=== PATIENT | male | born 1950 | race African-American/Black ===

== ENCOUNTER 2023-07-11 10:45 | Inpatient (IN) | payer MEDICARE, MEDICAID ==
[2023-07-11] MEDS: Ondansetron 4 MG/2 ML SDV IVPUSH ONE (10:59)
[2023-07-11] MEDS: HYDROmorphone 2 MG/ML SDV IVPUSH ONE (10:59)
[2023-07-11 11:08] LABS: BLOOD UREA NITROGEN,BUN 11 mg/dL (7-18); BUN/CREATININE RATIO 8.5 (9-20); CALCIUM 9.2 mg/dL (8.6-10.2); CARBON DIOXIDE,CO2 31 mmol/L (21-32); CHLORIDE,CL 107 mmol/L (100-110); CREATININE 1.3 mg/dL (0.70-1.30); EST CRCL DRUG DOSING (CG) 48.77 mL/min; ESTIMATED GFR 58 mL/min (>60); GLUCOSE RANDOM 83 mg/dL (80-116); POTASSIUM,K 3.4 mmol/L (3.5-5.3); SODIUM,NA 145 mmol/L (135-145)
[2023-07-11 11:12] LABS: BASOPHILS PERCENT AUTO 0.3 % (0.3-3.8); EOSINOPHILS PERCENT AUTO 0.1 % (0.1-6.8); HEMATOCRIT 44.2 % (38.3-50.1); HEMOGLOBIN 14.9 g/dL (12.9-17.7); LYMPHOCYTES ABSOLUTE AUTO 1.1 x10-3/uL (0.5-4.5); MEAN CORPUSCULAR HGB CONC 33.6 g/dL (28.7-35.3); MEAN CORPUSCULAR VOLUME 100.3 fL (80.8-98.7); MEAN PLATELET VOLUME 7.6 fL (6.7-11.0); MONOCYTES ABSOLUTE AUTO 0.8 x10-3/uL (0.0-1.2); MONOCYTES PERCENT AUTO 11.4 % (5.5-15.2); NEUTROPHILS ABSOLUTE AUTO 5.4 x10-3/uL (1.7-6.9); NEUTROPHILS PERCENT AUTO 73.2 % (40.3-71.8); PLATELET COUNT,PLT 186 x10(3)uL (117-477); RED BLOOD CELL COUNT 4.41 x10(6)uL (3.90-5.90); RED CELL DISTRIBUTION WIDTH 12.7 % (12.4-15.0); WHITE BLOOD CELL COUNT,WBC 7.4 x10-3/uL (3.2-10.1)
[2023-07-11 11:14] LABS: A/G RATIO 0.8; ALANINE AMINOTRANSFERASE,ALT 14 U/L (12-36); ALBUMIN 3.1 g/dL (3.2-4.6); ALKALINE PHOSPHATASE 95 IU/L (56-112); ASPARTATE AMNIOTRANSFERASE,AST 11 IU/L (5-25); BILIRUBIN TOTAL 1.1 mg/dL (0.1-1.3); PROTEIN TOTAL,TP 6.9 g/dL (6.0-8.0)
[2023-07-11 11:19] LABS: MEAN CORPUSCULAR HEMOGLOBIN 33.7 pg (27.0-33.3)
[2023-07-11] MEDS: cefTRIAXone 2 GM Vial IVPUSH ONE (11:22)
[2023-07-11] MEDS: Iopamidol 755 Mg/ML 100 ML Bottle IV SCH (11:55)
[2023-07-11] MEDS: Lactated Ringers 1,000 ML IV SCH (13:30)
[2023-07-11] MEDS ORDERED: Ondansetron 4 MG/2 ML SDV IV PRN (13:47)
[2023-07-11] MEDS ORDERED: Clindamycin Phosphate 300 MG/2 ML SDV IV SCH (14:00)
[2023-07-11] MEDS: Enoxaparin 40 MG/0.4 ML Syringe SUBCUT SCH (15:31)
[2023-07-11] MEDS: VANCOmycin 1 GM/200 ML 1 GM in Premix Bag 1 BAG IV SCH (15:33)
[2023-07-11] MEDS ORDERED: Ergocalciferol (Vitamin D2) 1.25 MG Cap PO SCH (17:00)
[2023-07-11] MEDS: Ertapenem 1 GM in Sodium Chloride 0.9% 50 ML IV SCH (17:50)
[2023-07-11] MEDS: Potassium Chloride 20 MEQ Tab.ER PO STA (18:13)
[2023-07-11] MEDS: Thiamine 100 MG Tab PO SCH (18:13)
[2023-07-11] MEDS: Folic Acid 1 MG Tab PO SCH (18:13)
[2023-07-11] MEDS: SODIUM CHLORIDE 0.9% IV SCH (19:08)
[2023-07-11] MEDS: DAPTOMYCIN IV SCH (19:08)
[2023-07-11] MEDS ORDERED: LORazepam 2 MG/ML SDV IVPUSH PRN (19:46)
[2023-07-11] MEDS: Gabapentin 300 MG Cap PO SCH (20:02)
[2023-07-11] MEDS: atorvaSTATin 40 MG Tab PO SCH (20:02)
[2023-07-11] MEDS: Tamsulosin 0.4 MG Cap.ER PO SCH (20:02)
[2023-07-11] MEDS: HYDROmorphone 2 MG/ML SDV IVPUSH PRN (20:03)
[2023-07-11] MEDS ORDERED: Saccharomyces Boulardii (Probiotic) 250 MG Cap PO SCH (21:00)
[2023-07-12 06:47] LABS: BASOPHILS PERCENT AUTO 0.8 % (0.3-3.8); EOSINOPHILS ABSOLUTE AUTO 0.1 x10-3/uL (0.0-0.6); EOSINOPHILS PERCENT AUTO 1.7 % (0.1-6.8); HEMATOCRIT 39.1 % (38.3-50.1); HEMOGLOBIN 13.1 g/dL (12.9-17.7); LYMPHOCYTES ABSOLUTE AUTO 1.6 x10-3/uL (0.5-4.5); LYMPHOCYTES PERCENT AUTO 30.2 % (15.8-45.3); MEAN CORPUSCULAR HEMOGLOBIN 33.7 pg (27.0-33.3); MEAN CORPUSCULAR HGB CONC 33.5 g/dL (28.7-35.3); MEAN CORPUSCULAR VOLUME 100.5 fL (80.8-98.7); MEAN PLATELET VOLUME 7.5 fL (6.7-11.0); MONOCYTES ABSOLUTE AUTO 0.7 x10-3/uL (0.0-1.2); MONOCYTES PERCENT AUTO 12.5 % (5.5-15.2); NEUTROPHILS ABSOLUTE AUTO 2.9 x10-3/uL (1.7-6.9); NEUTROPHILS PERCENT AUTO 54.8 % (40.3-71.8); PLATELET COUNT,PLT 166 x10(3)uL (117-477); RED BLOOD CELL COUNT 3.89 x10(6)uL (3.90-5.90); RED CELL DISTRIBUTION WIDTH 12.8 % (12.4-15.0); WHITE BLOOD CELL COUNT,WBC 5.2 x10-3/uL (3.2-10.1)
[2023-07-12 06:54] LABS: BLOOD UREA NITROGEN,BUN 9 mg/dL (7-18); BUN/CREATININE RATIO 8.2 (9-20); CALCIUM 8.9 mg/dL (8.6-10.2); CARBON DIOXIDE,CO2 27 mmol/L (21-32); CHLORIDE,CL 108 mmol/L (100-110); CREATININE 1.1 mg/dL (0.70-1.30); EST CRCL DRUG DOSING (CG) 57.69 mL/min; ESTIMATED GFR 71 mL/min (>60); GLUCOSE RANDOM 89 mg/dL (80-116); MAGNESIUM 1.7 mg/dL (1.8-2.5); SODIUM,NA 142 mmol/L (135-145)
[2023-07-12] MEDS: Metoprolol Succinate 25 MG Tab.ER PO SCH (10:09)
[2023-07-12] MEDS: Furosemide 40 MG Tab PO SCH (10:09)
[2023-07-12] MEDS: Clopidogrel 75 MG Tab PO SCH (10:10)
[2023-07-12] MEDS: hydrALAZINE 50 MG Tab PO SCH (11:04)
[2023-07-12] MEDS: Sodium Chloride 0.9% 10 ML Syringe FLUSH PRN (12:33)
[2023-07-12] MEDS: Magnesium Oxide 400 MG Tab PO ONE ×2 (12:37→13:10)
[2023-07-12] MEDS: Ertapenem 1 GM in Sodium Chloride 0.9% 50 ML IV SCH (13:04)
[2023-07-12] MEDS ORDERED: Lidocaine 1% PF 2 ML SDV IV ONE (14:14)
[2023-07-12] MEDS ORDERED: fentaNYL 100 MCG/2 ML SDV IV ONE (14:14)
[2023-07-12] MEDS ORDERED: Lidocaine 2% 20 ML MDV INFILT ONE (14:14)
[2023-07-12] MEDS ORDERED: Lactated Ringers 1,000 ML IV ONE (14:14)
[2023-07-12] MEDS ORDERED: Propofol 200 MG/20 ML SDV IV ONE (14:14)
== END 2023-07-12 14:15 | disposition still patient (30) | DRG 581 ==
LOC: FB.ED 10:45 → FB.MS 13:51
PROVIDERS: ADMIT Family Medicine; ATTEND Internal Medicine
PROC: 0Y950ZZ Drainage of Right Inguinal Region, Open Approach (ICD-10-PCS; principal; 2023-07-11)
DX: L02.214 Cutaneous abscess of groin (principal); I10 Essential (primary) hypertension; E78.00 Pure hypercholesterolemia, unspecified; Z66 Do not resuscitate; F17.210 Nicotine dependence, cigarettes, uncomplicated; E87.6 Hypokalemia; F10.20 Alcohol dependence, uncomplicated; F12.10 Cannabis abuse, uncomplicated; F32.A Depression, unspecified; I70.0 Atherosclerosis of aorta; E83.42 Hypomagnesemia; Z79.899 Other long term (current) drug therapy; Z86.73 Personal history of transient ischemic attack (TIA), and cerebral infarction without residual deficits; Z95.828 Presence of other vascular implants and grafts; I48.91 Unspecified atrial fibrillation; Z88.0 Allergy status to penicillin
CPT/HCPCS: 74177; 80053; 83605; 85025; 86140; 87040; 87070; 87205; J0696; J1170; J2405; J7120; Q9967; 10060; 36415; 80048; 83735; 96374; 96375; 99222; 99238; 99285-25; A9270-GY; J0878; J1335; J1650; J2704; J3010; J3370; J3490

== ENCOUNTER 2023-10-28 07:37 | Emergency (ER) | payer OTHER, MEDICAID ==
[2023-10-28 08:16] LABS: BASOPHILS PERCENT AUTO 0.4 % (0.3-3.8); EOSINOPHILS ABSOLUTE AUTO 0.1 x10-3/uL (0.0-0.6); EOSINOPHILS PERCENT AUTO 1.3 % (0.1-6.8); HEMATOCRIT 48.8 % (38.3-50.1); HEMOGLOBIN 16.6 g/dL (12.9-17.7); LYMPHOCYTES ABSOLUTE AUTO 1.3 x10-3/uL (0.5-4.5); LYMPHOCYTES PERCENT AUTO 22.7 % (15.8-45.3); MEAN CORPUSCULAR HEMOGLOBIN 33.6 pg (27.0-33.3); MEAN CORPUSCULAR HGB CONC 34.1 g/dL (28.7-35.3); MEAN CORPUSCULAR VOLUME 98.4 fL (80.8-98.7); MEAN PLATELET VOLUME 7.1 fL (6.7-11.0); MONOCYTES ABSOLUTE AUTO 0.5 x10-3/uL (0.0-1.2); MONOCYTES PERCENT AUTO 9.6 % (5.5-15.2); NEUTROPHILS ABSOLUTE AUTO 3.7 x10-3/uL (1.7-6.9); PLATELET COUNT,PLT 225 x10(3)uL (117-477); RED BLOOD CELL COUNT 4.96 x10(6)uL (3.90-5.90); RED CELL DISTRIBUTION WIDTH 12.5 % (12.4-15.0); WHITE BLOOD CELL COUNT,WBC 5.7 x10-3/uL (3.2-10.1)
[2023-10-28] MEDS: Sodium Chloride 0.9% 1,000 ML IV ONE (08:25)
[2023-10-28] MEDS: Ondansetron 4 MG/2 ML SDV IVPUSH ONE ×2 (08:26→13:37)
[2023-10-28] MEDS: Morphine 2 MG/ML SYRINGE IVPUSH ONE (08:31)
[2023-10-28 08:41] LABS: BLOOD UREA NITROGEN,BUN 13 mg/dL (7-18); BUN/CREATININE RATIO 10.8 (9-20); CALCIUM 8.9 mg/dL (8.6-10.2); CARBON DIOXIDE,CO2 27 mmol/L (21-32); CHLORIDE,CL 100 mmol/L (100-110); CREATININE 1.2 mg/dL (0.70-1.30); EST CRCL DRUG DOSING (CG) 49.98 mL/min; ESTIMATED GFR 64 mL/min (>60); GLUCOSE RANDOM 91 mg/dL (80-116); POTASSIUM,K 4.2 mmol/L (3.5-5.3); SODIUM,NA 137 mmol/L (135-145)
[2023-10-28 08:47] LABS: A/G RATIO 0.9; ALANINE AMINOTRANSFERASE,ALT 15 U/L (12-36); ALBUMIN 3.3 g/dL (3.2-4.6); ALKALINE PHOSPHATASE 89 IU/L (56-112); ASPARTATE AMNIOTRANSFERASE,AST 16 IU/L (5-25); BILIRUBIN TOTAL 1.3 mg/dL (0.1-1.3); PROTEIN TOTAL,TP 7.2 g/dL (6.0-8.0)
[2023-10-28] MEDS: Iopamidol 755 Mg/ML 100 ML Bottle IV SCH (09:17)
[2023-10-28] MEDS: Sodium Chloride 0.9% 1,000 ML IV SCH (09:46)
[2023-10-28 09:55] LABS: BILIRUBIN,URINE NEGATIVE (NEGATIVE); GLUCOSE,URINE NORMAL (NORMAL); KETONES,URINE 50 mg/dL (NEGATIVE); LEUKOCYTE ESTERASE,URINE NEGATIVE (NEGATIVE); NITRITE,URINE NEGATIVE (NEGATIVE); OCCULT BLOOD,URINE NEGATIVE (NEGATIVE); PROTEIN,URINE NEGATIVE (NEGATIVE); UROBILINOGEN,URINE NORMAL (NEGATIVE)
[2023-10-28 09:58] LABS: APPEARANCE,URINE CLEAR (CLEAR); COLOR,URINE YELLOW (YELLOW)
[2023-10-28] MEDS: hydrALAZINE 20 MG/ML SDV IVPUSH ONE (10:59)
[2023-10-28] MEDS: Nitroglycerin 0.4 MG Tab.SL SL ONE (11:56)
== END 2023-10-28 15:17 | disposition home or self-care (01) ==
LOC: FB.ED 07:37
DX: R07.9 Chest pain, unspecified (principal); I10 Essential (primary) hypertension; E78.00 Pure hypercholesterolemia, unspecified; Z88.0 Allergy status to penicillin; Z79.82 Long term (current) use of aspirin; Z79.899 Other long term (current) drug therapy
CPT/HCPCS: 36415; 71046; 72192; 74177; 80053; 81003; 83735; 84484; 85025; 93005; 96361; 96374; 96375; 96376; 99285; J0360; J2270; J2405; J7030; Q9967

== ENCOUNTER 2023-11-30 18:57 | Emergency (ER) | payer MEDICAID ==
[2023-11-30] MEDS ORDERED: Sodium Chloride 0.9% 10 ML Syringe FLUSH PRN (19:11)
[2023-11-30] MEDS: Ondansetron 4 MG/2 ML SDV IVPUSH ONE (19:43)
[2023-11-30] MEDS: Sodium Chloride 0.9% 1,000 ML IV SCH (19:45)
[2023-11-30 19:56] LABS: BASOPHILS PERCENT AUTO 0.3 % (0.3-3.8); EOSINOPHILS PERCENT AUTO 0.3 % (0.1-6.8); HEMOGLOBIN 17.4 g/dL (12.9-17.7); LYMPHOCYTES ABSOLUTE AUTO 0.9 x10-3/uL (0.5-4.5); LYMPHOCYTES PERCENT AUTO 13.5 % (15.8-45.3); MEAN CORPUSCULAR HEMOGLOBIN 33.4 pg (27.0-33.3); MEAN CORPUSCULAR HGB CONC 33.5 g/dL (28.7-35.3); MEAN CORPUSCULAR VOLUME 99.8 fL (80.8-98.7); MEAN PLATELET VOLUME 7.6 fL (6.7-11.0); MONOCYTES ABSOLUTE AUTO 0.5 x10-3/uL (0.0-1.2); MONOCYTES PERCENT AUTO 7.3 % (5.5-15.2); NEUTROPHILS ABSOLUTE AUTO 5.1 x10-3/uL (1.7-6.9); NEUTROPHILS PERCENT AUTO 78.6 % (40.3-71.8); PLATELET COUNT,PLT 198 x10(3)uL (117-477); RED BLOOD CELL COUNT 5.21 x10(6)uL (3.90-5.90); RED CELL DISTRIBUTION WIDTH 13.3 % (12.4-15.0); WHITE BLOOD CELL COUNT,WBC 6.5 x10-3/uL (3.2-10.1)
[2023-11-30 20:10] LABS: LACTIC ACID 1.8 mmol/L (0.4-2.0)
[2023-11-30 20:22] LABS: C-REACTIVE PROTEIN < 0.50 mg/dL (<0.50)
[2023-11-30 20:32] LABS: BLOOD UREA NITROGEN,BUN 14 mg/dL (7-18); BUN/CREATININE RATIO 15.6 (9-20); CALCIUM 8.2 mg/dL (8.6-10.2); CARBON DIOXIDE,CO2 24 mmol/L (21-32); CHLORIDE,CL 99 mmol/L (100-110); CREATININE 0.9 mg/dL (0.70-1.30); ESTIMATED GFR 91 mL/min (>60); GLUCOSE RANDOM 77 mg/dL (80-116); POTASSIUM,K 3.7 mmol/L (3.5-5.3); SODIUM,NA 137 mmol/L (135-145)
[2023-11-30 20:38] LABS: ALANINE AMINOTRANSFERASE,ALT 15 U/L (12-36); ALBUMIN 2.9 g/dL (3.2-4.6); ALKALINE PHOSPHATASE 78 IU/L (56-112); ASPARTATE AMNIOTRANSFERASE,AST 19 IU/L (5-25); BILIRUBIN TOTAL 1.4 mg/dL (0.1-1.3); PROTEIN TOTAL,TP 5.9 g/dL (6.0-8.0)
[2023-11-30 21:03] LABS: BILIRUBIN,URINE NEGATIVE (NEGATIVE); GLUCOSE,URINE NORMAL (NORMAL); KETONES,URINE 150 mg/dL (NEGATIVE); LEUKOCYTE ESTERASE,URINE NEGATIVE (NEGATIVE); NITRITE,URINE NEGATIVE (NEGATIVE); OCCULT BLOOD,URINE NEGATIVE (NEGATIVE); PROTEIN,URINE 30 mg/dL (NEGATIVE); UROBILINOGEN,URINE NORMAL (NEGATIVE)
[2023-11-30 21:10] LABS: APPEARANCE,URINE CLEAR (CLEAR); BACTERIA,URINE OCCASIONAL (NS); COLOR,URINE YELLOW (YELLOW); MUCUS,URINE FEW (NS); RBC,URINE 0-5 (0-5); SQUAMOUS EPITHELIAL CELLS,UR OCCASIONAL (NS,R,O); WBC,URINE 0-5 (0-5)
[2023-11-30 21:11] LABS: AMPHETAMINES SCREEN, URINE NEGATIVE (NEGATIVE); BARBITURATE SCREEN,URINE NEGATIVE (NEGATIVE); BENZODIAZEPINES SCREEN,URINE NEGATIVE (NEGATIVE); METHADONE SCREEN, URINE NEGATIVE (NEGATIVE); METHAMPHETAMINE SCREEN, URINE NEGATIVE (NEGATIVE); THC SCREEN,URINE POSITIVE (NEGATIVE)
[2023-11-30 21:12] LABS: BUPRENORPHINE SCREEN,URINE NEGATIVE (NEGATIVE); OXYCODONE SCREEN,URINE NEGATIVE (NEGATIVE)
[2023-11-30] MEDS: Iopamidol 755 Mg/ML 100 ML Bottle IV SCH (21:35)
[2023-11-30] MEDS: Metoclopramide 10 MG/2 ML SDV IVPUSH ONE (22:04)
[2023-11-30] MEDS: Sodium Chloride 0.9% 1,000 ML IV ONE (22:06)
[2023-11-30] MEDS: Pantoprazole 40 MG Vial IVPUSH ONE (22:06)
== END 2023-11-30 23:02 | disposition home or self-care (01) ==
LOC: FB.ED 18:57
DX: R07.9 Chest pain, unspecified (principal); R11.2 Nausea with vomiting, unspecified; I10 Essential (primary) hypertension; Z95.5 Presence of coronary angioplasty implant and graft; Z79.899 Other long term (current) drug therapy; Z79.82 Long term (current) use of aspirin; Z88.0 Allergy status to penicillin
CPT/HCPCS: 36415; 71045; 71275; 80053; 80307; 81001; 83605; 84484; 85025; 85379; 86140; 87040; 93005; 96361; 96374; 96375; 99285; J2405; J2470; J2765; J7030; Q9967; 99284

== ENCOUNTER 2023-12-10 12:07 | Emergency (ER) | payer MEDICAID, MEDICARE, OTHER ==
[2023-12-10] MEDS ORDERED: Sodium Chloride 0.9% 10 ML Syringe FLUSH PRN (12:27)
[2023-12-10] MEDS: Sodium Chloride 0.9% 1,000 ML IV SCH (12:41)
[2023-12-10] MEDS: Ondansetron 4 MG/2 ML SDV IVPUSH ONE (12:41)
[2023-12-10] MEDS: Aspirin 81 MG Tab.Chew PO ONE (12:54)
[2023-12-10] MEDS: Nitroglycerin 0.4 MG Tab.SL SL ONE (12:56)
[2023-12-10 13:02] LABS: BLOOD UREA NITROGEN,BUN 12 mg/dL (7-18); BUN/CREATININE RATIO 10.9 (9-20); CALCIUM 9.7 mg/dL (8.6-10.2); CARBON DIOXIDE,CO2 30 mmol/L (21-32); CHLORIDE,CL 101 mmol/L (100-110); CREATININE 1.1 mg/dL (0.70-1.30); ESTIMATED GFR 71 mL/min (>60); GLUCOSE RANDOM 118 mg/dL (80-116); POTASSIUM,K 4.8 mmol/L (3.5-5.3); SODIUM,NA 141 mmol/L (135-145)
[2023-12-10 13:03] LABS: BASOPHILS PERCENT AUTO 0.1 % (0.3-3.8); EOSINOPHILS ABSOLUTE AUTO 0.1 x10-3/uL (0.0-0.6); EOSINOPHILS PERCENT AUTO 0.6 % (0.1-6.8); HEMATOCRIT 49.4 % (38.3-50.1); HEMOGLOBIN 16.7 g/dL (12.9-17.7); LYMPHOCYTES ABSOLUTE AUTO 0.7 x10-3/uL (0.5-4.5); LYMPHOCYTES PERCENT AUTO 7.2 % (15.8-45.3); MEAN CORPUSCULAR HEMOGLOBIN 33.9 pg (27.0-33.3); MEAN CORPUSCULAR HGB CONC 33.9 g/dL (28.7-35.3); MEAN CORPUSCULAR VOLUME 100.1 fL (80.8-98.7); MEAN PLATELET VOLUME 7.7 fL (6.7-11.0); MONOCYTES ABSOLUTE AUTO 0.8 x10-3/uL (0.0-1.2); MONOCYTES PERCENT AUTO 7.9 % (5.5-15.2); NEUTROPHILS ABSOLUTE AUTO 8.6 x10-3/uL (1.7-6.9); NEUTROPHILS PERCENT AUTO 84.2 % (40.3-71.8); PLATELET COUNT,PLT 203 x10(3)uL (117-477); RED BLOOD CELL COUNT 4.94 x10(6)uL (3.90-5.90); RED CELL DISTRIBUTION WIDTH 13.2 % (12.4-15.0); WHITE BLOOD CELL COUNT,WBC 10.2 x10-3/uL (3.2-10.1)
[2023-12-10 13:07] LABS: INR 1.02 (1.00-1.24); PROTHROMBIN TIME 10.6 sec (9.0-11.1); PTT,PARTIAL THROMBOPLSTIN TIME 23.6 SECONDS (24.4-33.2)
[2023-12-10 13:08] LABS: ALANINE AMINOTRANSFERASE,ALT 15 U/L (12-36); ALBUMIN 3.6 g/dL (3.2-4.6); ALKALINE PHOSPHATASE 88 IU/L (56-112); ASPARTATE AMNIOTRANSFERASE,AST 14 IU/L (5-25); BILIRUBIN TOTAL 1.3 mg/dL (0.1-1.3); PROTEIN TOTAL,TP 7.3 g/dL (6.0-8.0)
[2023-12-10 13:17] LABS: TROPONIN I 33.6 pg/mL (4.0-60.3)
[2023-12-10] MEDS: Ketorolac 30 MG/ML SDV IVPUSH ONE (13:19)
[2023-12-10] MEDS: Prochlorperazine 10 MG/2 ML SDV IVPUSH ONE (13:20)
[2023-12-10] MEDS: amLODIPine 10 MG Tab PO STA (13:20)
[2023-12-10] MEDS: Labetalol 20 MG/4 ML Syringe IVPUSH ONE (13:52)
== END 2023-12-10 14:25 | disposition home or self-care (01) ==
LOC: FB.ED 12:07
DX: K52.9 Noninfective gastroenteritis and colitis, unspecified (principal); R07.81 Pleurodynia; E11.9 Type 2 diabetes mellitus without complications; I10 Essential (primary) hypertension; E78.00 Pure hypercholesterolemia, unspecified; F17.210 Nicotine dependence, cigarettes, uncomplicated; Z79.82 Long term (current) use of aspirin; Z79.02 Long term (current) use of antithrombotics/antiplatelets; Z79.899 Other long term (current) drug therapy; Z88.0 Allergy status to penicillin
CPT/HCPCS: 36415; 71045; 80053; 83880; 84484; 85025; 85610; 85730; 93005; 96361; 96374; 96375; 99285-25; A9270-GY; J0780; J1885; J2405; J7030

== ENCOUNTER 2024-03-25 10:41 | Emergency (ER) | payer MEDICARE, MEDICAID ==
[2024-03-25 11:11] LABS: BASOPHILS PERCENT AUTO 0.2 % (0.3-3.8); EOSINOPHILS PERCENT AUTO 0.5 % (0.1-6.8); HEMATOCRIT 45.4 % (38.3-50.1); LYMPHOCYTES ABSOLUTE AUTO 0.3 x10-3/uL (0.5-4.5); LYMPHOCYTES PERCENT AUTO 5.5 % (15.8-45.3); MEAN CORPUSCULAR HEMOGLOBIN 32.8 pg (27.0-33.3); MEAN CORPUSCULAR HGB CONC 33.1 g/dL (28.7-35.3); MEAN CORPUSCULAR VOLUME 99.1 fL (80.8-98.7); MEAN PLATELET VOLUME 7.4 fL (6.7-11.0); MONOCYTES ABSOLUTE AUTO 0.4 x10-3/uL (0.0-1.2); MONOCYTES PERCENT AUTO 7.8 % (5.5-15.2); NEUTROPHILS ABSOLUTE AUTO 4.5 x10-3/uL (1.7-6.9); NEUTROPHILS PERCENT AUTO 86.1 % (40.3-71.8); PLATELET COUNT,PLT 155 x10(3)uL (117-477); RED BLOOD CELL COUNT 4.58 x10(6)uL (3.90-5.90); RED CELL DISTRIBUTION WIDTH 12.7 % (12.4-15.0); WHITE BLOOD CELL COUNT,WBC 5.2 x10-3/uL (3.2-10.1)
[2024-03-25 11:15] LABS: BLOOD UREA NITROGEN,BUN 12 mg/dL (7-18); CALCIUM 8.9 mg/dL (8.6-10.2); CARBON DIOXIDE,CO2 29 mmol/L (21-32); CHLORIDE,CL 100 mmol/L (100-110); CREATININE 1.2 mg/dL (0.70-1.30); ESTIMATED GFR 64 mL/min (>60); GLUCOSE RANDOM 112 mg/dL (80-116); POTASSIUM,K 3.6 mmol/L (3.5-5.3); SODIUM,NA 138 mmol/L (135-145)
[2024-03-25 11:23] LABS: ALANINE AMINOTRANSFERASE,ALT 24 U/L (12-36); ALBUMIN 3.4 g/dL (3.2-4.6); ALKALINE PHOSPHATASE 88 IU/L (56-112); ASPARTATE AMNIOTRANSFERASE,AST 25 IU/L (5-25); BILIRUBIN TOTAL 1.1 mg/dL (0.1-1.3); PROTEIN TOTAL,TP 6.8 g/dL (6.0-8.0)
[2024-03-25 11:32] LABS: LACTIC ACID 1.5 mmol/L (0.4-2.0)
[2024-03-25] MEDS: Acetaminophen 500 MG Tab PO ONE (13:34)
== END 2024-03-25 13:59 | disposition home or self-care (01) ==
LOC: FB.ED 10:41
DX: S06.0X0A Concussion without loss of consciousness, initial encounter (principal); J10.1 Influenza due to other identified influenza virus with other respiratory manifestations; I10 Essential (primary) hypertension; E78.00 Pure hypercholesterolemia, unspecified; F17.290 Nicotine dependence, other tobacco product, uncomplicated; Z95.5 Presence of coronary angioplasty implant and graft; Z79.899 Other long term (current) drug therapy; Z79.82 Long term (current) use of aspirin; Z88.0 Allergy status to penicillin; W00.0XXA Fall on same level due to ice and snow, initial encounter; W22.8XXA Striking against or struck by other objects, initial encounter
CPT/HCPCS: 36415; 70450; 72125; 80053; 83605; 85025; 86140; 87428-QW; 99283; 99285; A9270-GY

== ENCOUNTER 2024-05-23 11:17 | Emergency (ER) | payer MEDICARE, MEDICAID ==
[2024-05-23] MEDS: Ketorolac 30 MG/ML SDV IM ONE (11:41)
== END 2024-05-23 13:59 | disposition home or self-care (01) ==
LOC: FB.ED 11:17
DX: S39.012A Strain of muscle, fascia and tendon of lower back, initial encounter (principal); M48.061 Spinal stenosis, lumbar region without neurogenic claudication; I10 Essential (primary) hypertension; E78.00 Pure hypercholesterolemia, unspecified; F17.290 Nicotine dependence, other tobacco product, uncomplicated; Z95.5 Presence of coronary angioplasty implant and graft; Z79.82 Long term (current) use of aspirin; Z79.899 Other long term (current) drug therapy; Z88.0 Allergy status to penicillin; W18.30XA Fall on same level, unspecified, initial encounter; Y92.009 Unspecified place in unspecified non-institutional (private) residence as the place of occurrence of the external cause
CPT/HCPCS: 70450; 72131; 96372; 99283; J1885

== ENCOUNTER 2024-06-08 09:42 | Emergency (ER) | payer MEDICARE, MEDICAID ==
[2024-06-08] MEDS ORDERED: Sodium Chloride 0.9% 10 ML Syringe FLUSH PRN (10:04)
[2024-06-08] MEDS ORDERED: Naloxone 0.4 MG/ML SDV IVPUSH PRN (10:07)
[2024-06-08] MEDS: Ondansetron 4 MG/2 ML SDV IVPUSH ONE ×2 (10:12→11:40)
[2024-06-08] MEDS: Sodium Chloride 0.9% 1,000 ML IV SCH (10:12)
[2024-06-08 10:14] LABS: BASOPHILS PERCENT AUTO 0.3 % (0.3-3.8); EOSINOPHILS PERCENT AUTO 0.2 % (0.1-6.8); HEMATOCRIT 53.1 % (38.3-50.1); LYMPHOCYTES ABSOLUTE AUTO 1.2 x10-3/uL (0.5-4.5); LYMPHOCYTES PERCENT AUTO 26.9 % (15.8-45.3); MEAN CORPUSCULAR HEMOGLOBIN 33.3 pg (27.0-33.3); MEAN CORPUSCULAR HGB CONC 33.9 g/dL (28.7-35.3); MEAN CORPUSCULAR VOLUME 98.2 fL (80.8-98.7); MEAN PLATELET VOLUME 7.4 fL (6.7-11.0); MONOCYTES ABSOLUTE AUTO 0.5 x10-3/uL (0.0-1.2); MONOCYTES PERCENT AUTO 10.2 % (5.5-15.2); NEUTROPHILS ABSOLUTE AUTO 2.9 x10-3/uL (1.7-6.9); NEUTROPHILS PERCENT AUTO 62.4 % (40.3-71.8); PLATELET COUNT,PLT 246 x10(3)uL (117-477); RED CELL DISTRIBUTION WIDTH 12.6 % (12.4-15.0); WHITE BLOOD CELL COUNT,WBC 4.6 x10-3/uL (3.2-10.1)
[2024-06-08] MEDS: fentaNYL 100 MCG/2 ML SDV IVPUSH STA (10:14)
[2024-06-08 10:22] LABS: BLOOD UREA NITROGEN,BUN 18 mg/dL (7-18); BUN/CREATININE RATIO 13.8 (9-20); CALCIUM 9.9 mg/dL (8.6-10.2); CARBON DIOXIDE,CO2 32 mmol/L (21-32); CHLORIDE,CL 95 mmol/L (100-110); CREATININE 1.3 mg/dL (0.70-1.30); EST CRCL DRUG DOSING (CG) 44.28 mL/min; ESTIMATED GFR 58 mL/min (>60); GLUCOSE RANDOM 129 mg/dL (80-116); POTASSIUM,K 4.3 mmol/L (3.5-5.3); SODIUM,NA 134 mmol/L (135-145)
[2024-06-08 10:27] LABS: A/G RATIO 0.9; ALANINE AMINOTRANSFERASE,ALT 20 U/L (12-36); ALBUMIN 3.8 g/dL (3.2-4.6); ALKALINE PHOSPHATASE 89 IU/L (56-112); ASPARTATE AMNIOTRANSFERASE,AST 34 IU/L (5-25); BILIRUBIN TOTAL 1.4 mg/dL (0.1-1.3); PROTEIN TOTAL,TP 8.2 g/dL (6.0-8.0)
[2024-06-08 10:33] LABS: TROPONIN I 23.6 pg/mL (4.0-60.3)
[2024-06-08] MEDS: Iopamidol 755 Mg/ML 100 ML Bottle IV SCH (10:43)
[2024-06-08 11:06] LABS: BILIRUBIN,URINE NEGATIVE (NEGATIVE); GLUCOSE,URINE NORMAL (NORMAL); KETONES,URINE 15 mg/dL (NEGATIVE); LEUKOCYTE ESTERASE,URINE NEGATIVE (NEGATIVE); NITRITE,URINE NEGATIVE (NEGATIVE); OCCULT BLOOD,URINE NEGATIVE (NEGATIVE); PROTEIN,URINE NEGATIVE (NEGATIVE); UROBILINOGEN,URINE NORMAL (NEGATIVE)
[2024-06-08 11:07] LABS: APPEARANCE,URINE CLEAR (CLEAR); COLOR,URINE YELLOW (YELLOW)
== END 2024-06-08 11:55 | disposition home or self-care (01) ==
LOC: FB.ED 09:42
DX: K59.00 Constipation, unspecified (principal); I10 Essential (primary) hypertension; E78.00 Pure hypercholesterolemia, unspecified; E11.9 Type 2 diabetes mellitus without complications; F17.210 Nicotine dependence, cigarettes, uncomplicated; Z88.0 Allergy status to penicillin; Z79.82 Long term (current) use of aspirin; Z79.899 Other long term (current) drug therapy; Z79.02 Long term (current) use of antithrombotics/antiplatelets; Z95.5 Presence of coronary angioplasty implant and graft
CPT/HCPCS: 36415; 71045; 74177; 80053; 81003; 83690; 83880; 84484; 85025; 93005; 93010; 96361; 96374; 96375; 96376; 99284; 99285-25; J2405; J3010; J7030; Q9967

== ENCOUNTER 2024-06-29 09:46 | Emergency (ER) | payer MEDICARE, MEDICAID ==
[2024-06-29] MEDS: Ondansetron 4 MG Tab.DIS PO ONE (10:24)
[2024-06-29 10:29] LABS: BASOPHILS PERCENT AUTO 0.7 % (0.3-3.8); EOSINOPHILS PERCENT AUTO 0.8 % (0.1-6.8); HEMATOCRIT 44.1 % (38.3-50.1); HEMOGLOBIN 14.7 g/dL (12.9-17.7); LYMPHOCYTES ABSOLUTE AUTO 1.5 x10-3/uL (0.5-4.5); LYMPHOCYTES PERCENT AUTO 31.4 % (15.8-45.3); MEAN CORPUSCULAR HGB CONC 33.2 g/dL (28.7-35.3); MEAN CORPUSCULAR VOLUME 99.3 fL (80.8-98.7); MEAN PLATELET VOLUME 6.9 fL (6.7-11.0); MONOCYTES ABSOLUTE AUTO 0.5 x10-3/uL (0.0-1.2); MONOCYTES PERCENT AUTO 10.6 % (5.5-15.2); NEUTROPHILS ABSOLUTE AUTO 2.8 x10-3/uL (1.7-6.9); NEUTROPHILS PERCENT AUTO 56.5 % (40.3-71.8); PLATELET COUNT,PLT 184 x10(3)uL (117-477); RED BLOOD CELL COUNT 4.44 x10(6)uL (3.90-5.90); RED CELL DISTRIBUTION WIDTH 12.6 % (12.4-15.0); WHITE BLOOD CELL COUNT,WBC 4.9 x10-3/uL (3.2-10.1)
[2024-06-29 10:43] LABS: BLOOD UREA NITROGEN,BUN 11 mg/dL (7-18); CALCIUM 8.9 mg/dL (8.6-10.2); CARBON DIOXIDE,CO2 29 mmol/L (21-32); CHLORIDE,CL 106 mmol/L (100-110); CREATININE 1.1 mg/dL (0.70-1.30); ESTIMATED GFR 71 mL/min (>60); GLUCOSE RANDOM 96 mg/dL (80-116); POTASSIUM,K 3.9 mmol/L (3.5-5.3); SODIUM,NA 142 mmol/L (135-145)
[2024-06-29 10:44] LABS: TROPONIN I 24.3 pg/mL (4.0-60.3)
[2024-06-29 10:49] LABS: A/G RATIO 0.9; ALANINE AMINOTRANSFERASE,ALT 15 U/L (12-36); ALKALINE PHOSPHATASE 73 IU/L (56-112); ASPARTATE AMNIOTRANSFERASE,AST 20 IU/L (5-25); BILIRUBIN TOTAL 0.9 mg/dL (0.1-1.3); PROTEIN TOTAL,TP 6.2 g/dL (6.0-8.0)
== END 2024-06-29 11:13 | disposition home or self-care (01) ==
LOC: FB.ED 09:46
DX: B34.9 Viral infection, unspecified (principal); E78.00 Pure hypercholesterolemia, unspecified; E11.9 Type 2 diabetes mellitus without complications; Z88.0 Allergy status to penicillin; Z79.82 Long term (current) use of aspirin; Z79.899 Other long term (current) drug therapy
CPT/HCPCS: 36415; 80053; 83690; 84484; 85025; 93005; 93010; 99283; 99284; Q0162

== ENCOUNTER 2024-08-03 09:21 | Emergency (ER) | payer MEDICARE, MEDICAID ==
[2024-08-03] MEDS: Ondansetron 4 MG/2 ML SDV IVPUSH ONE (09:58)
[2024-08-03] MEDS ORDERED: Sodium Chloride 0.9% 10 ML Syringe FLUSH PRN (09:58)
[2024-08-03 10:13] LABS: BLOOD UREA NITROGEN,BUN 22 mg/dL (7-18); BUN/CREATININE RATIO 14.7 (9-20); CALCIUM 9.9 mg/dL (8.6-10.2); CARBON DIOXIDE,CO2 31 mmol/L (21-32); CHLORIDE,CL 97 mmol/L (100-110); CREATININE 1.5 mg/dL (0.70-1.30); EST CRCL DRUG DOSING (CG) 38.03 mL/min; ESTIMATED GFR 49 mL/min (>60); GLUCOSE RANDOM 110 mg/dL (80-116); POTASSIUM,K 4.2 mmol/L (3.5-5.3); SODIUM,NA 137 mmol/L (135-145)
[2024-08-03 10:14] LABS: BASOPHILS PERCENT AUTO 0.3 % (0.3-3.8); EOSINOPHILS PERCENT AUTO 0.4 % (0.1-6.8); HEMATOCRIT 52.6 % (38.3-50.1); HEMOGLOBIN 17.9 g/dL (12.9-17.7); LYMPHOCYTES ABSOLUTE AUTO 1.1 x10-3/uL (0.5-4.5); LYMPHOCYTES PERCENT AUTO 18.2 % (15.8-45.3); MEAN CORPUSCULAR HEMOGLOBIN 33.4 pg (27.0-33.3); MEAN CORPUSCULAR HGB CONC 34.1 g/dL (28.7-35.3); MEAN CORPUSCULAR VOLUME 97.9 fL (80.8-98.7); MEAN PLATELET VOLUME 7.3 fL (6.7-11.0); MONOCYTES ABSOLUTE AUTO 0.6 x10-3/uL (0.0-1.2); MONOCYTES PERCENT AUTO 9.4 % (5.5-15.2); NEUTROPHILS ABSOLUTE AUTO 4.4 x10-3/uL (1.7-6.9); NEUTROPHILS PERCENT AUTO 71.7 % (40.3-71.8); PLATELET COUNT,PLT 262 x10(3)uL (117-477); RED BLOOD CELL COUNT 5.37 x10(6)uL (3.90-5.90); RED CELL DISTRIBUTION WIDTH 12.6 % (12.4-15.0); WHITE BLOOD CELL COUNT,WBC 6.1 x10-3/uL (3.2-10.1)
[2024-08-03 10:19] LABS: ALANINE AMINOTRANSFERASE,ALT 19 U/L (12-36); ALKALINE PHOSPHATASE 95 IU/L (56-112); ASPARTATE AMNIOTRANSFERASE,AST 16 IU/L (5-25); BILIRUBIN TOTAL 1.5 mg/dL (0.1-1.3); PROTEIN TOTAL,TP 8.1 g/dL (6.0-8.0)
[2024-08-03] MEDS: Pantoprazole 40 MG Vial IVPUSH ONE (10:19)
[2024-08-03] MEDS: Sodium Chloride 0.9% 1,000 ML IV ONE ×2 (10:19→11:22)
[2024-08-03 10:22] LABS: TROPONIN I 26.4 pg/mL (4.0-60.3)
[2024-08-03 10:36] LABS: C-REACTIVE PROTEIN <0.50 mg/dL (<0.50); ETHANOL BLOOD MEDICAL < 0.03 % (<0.03)
[2024-08-03] MEDS: Aspirin 81 MG Tab.Chew PO ONE (10:46)
[2024-08-03] MEDS: LORazepam 2 MG/ML SDV IVPUSH ONE (11:23)
== END 2024-08-03 13:20 | disposition home or self-care (01) ==
LOC: FB.ED 09:21
DX: R10.84 Generalized abdominal pain (principal); E86.0 Dehydration; R11.2 Nausea with vomiting, unspecified; F10.10 Alcohol abuse, uncomplicated; I10 Essential (primary) hypertension; E78.00 Pure hypercholesterolemia, unspecified; F17.290 Nicotine dependence, other tobacco product, uncomplicated; E11.9 Type 2 diabetes mellitus without complications; Z79.82 Long term (current) use of aspirin; Z79.02 Long term (current) use of antithrombotics/antiplatelets; Z79.899 Other long term (current) drug therapy; Z88.0 Allergy status to penicillin
CPT/HCPCS: 36415; 80053; 80307; 83605; 83690; 83735; 84484; 85025; 86140; 93005; 96361; 96374; 96375; 99285; A9270; J2060; J2405; J2470; J7030

== ENCOUNTER 2024-09-22 18:06 | Emergency (ER) | payer MEDICARE, MEDICAID ==
[2024-09-22] MEDS: hydrALAZINE 20 MG/ML SDV IVPUSH ONE (18:20)
[2024-09-22 18:30] LABS: BASOPHILS ABSOLUTE AUTO 0.0 x10-3/uL (0.0-0.3); BASOPHILS PERCENT AUTO 0.6 % (0.3-3.8); EOSINOPHILS ABSOLUTE AUTO 0.1 x10-3/uL (0.0-0.6); EOSINOPHILS PERCENT AUTO 1.6 % (0.1-6.8); LYMPHOCYTES ABSOLUTE AUTO 1.1 x10-3/uL (0.5-4.5); LYMPHOCYTES PERCENT AUTO 22.3 % (15.8-45.3); MEAN PLATELET VOLUME 7.1 fL (6.7-11.0); MONOCYTES ABSOLUTE AUTO 0.5 x10-3/uL (0.0-1.2); MONOCYTES PERCENT AUTO 10.4 % (5.5-15.2); NEUTROPHILS ABSOLUTE AUTO 3.3 x10-3/uL (1.7-6.9); NEUTROPHILS PERCENT AUTO 65.1 % (40.3-71.8); PLATELET COUNT,PLT 199 x10(3)uL (117-477); RED BLOOD CELL COUNT 4.52 x10(6)uL (3.90-5.90); RED CELL DISTRIBUTION WIDTH 13.0 % (12.4-15.0); WHITE BLOOD CELL COUNT,WBC 5.1 x10-3/uL (3.2-10.1)
[2024-09-22 18:32] LABS: BLOOD UREA NITROGEN,BUN 8 mg/dL (7-18); CARBON DIOXIDE,CO2 29 mmol/L (21-32); CHLORIDE,CL 104 mmol/L (100-110); CREATININE 1.2 mg/dL (0.70-1.30); EST CRCL DRUG DOSING (CG) 47.84 mL/min; ESTIMATED GFR 64 mL/min (>60); GLUCOSE RANDOM 101 mg/dL (80-116); POTASSIUM,K 4.3 mmol/L (3.5-5.3); SODIUM,NA 142 mmol/L (135-145)
[2024-09-22 18:38] LABS: A/G RATIO 0.9; ALANINE AMINOTRANSFERASE,ALT 19 U/L (12-36); ASPARTATE AMNIOTRANSFERASE,AST 22 IU/L (5-25); BILIRUBIN TOTAL 1.0 mg/dL (0.1-1.3); PROTEIN TOTAL,TP 7.2 g/dL (6.0-8.0)
[2024-09-22 18:45] LABS: PRO B-TYPE NATRIUR PEPT,BNPPRO 116.0 pg/mL (<=125)
[2024-09-22] MEDS: Sodium Chloride 0.9% 10 ML Syringe FLUSH PRN (18:51)
[2024-09-22] MEDS: Ondansetron 4 MG/2 ML SDV IVPUSH ONE (19:35)
[2024-09-22] MEDS: LORazepam 2 MG/ML SDV IVPUSH ONE (19:35)
[2024-09-22] MEDS: Thiamine 200 MG/2 ML MDV IVPUSH ONE (19:37)
== END 2024-09-22 21:45 | disposition home or self-care (01) ==
LOC: FB.ED 18:06
DX: I10 Essential (primary) hypertension (principal); F10.10 Alcohol abuse, uncomplicated; I48.91 Unspecified atrial fibrillation; E11.42 Type 2 diabetes mellitus with diabetic polyneuropathy; E78.00 Pure hypercholesterolemia, unspecified; Z86.73 Personal history of transient ischemic attack (TIA), and cerebral infarction without residual deficits; K21.9 Gastro-esophageal reflux disease without esophagitis; Y90.1 Blood alcohol level of 20-39 mg/100 ml; F17.210 Nicotine dependence, cigarettes, uncomplicated; Z79.899 Other long term (current) drug therapy; Z79.82 Long term (current) use of aspirin; Z79.02 Long term (current) use of antithrombotics/antiplatelets; Z88.0 Allergy status to penicillin
CPT/HCPCS: 36415; 71045; 80053; 80307; 83880; 84484; 85025; 86140; 93005; 93010; 96361; 96374; 96375; 99284; 99285-25; J0360; J2060; J2405; J3411; J7030

== ENCOUNTER 2024-10-04 15:06 | Emergency (ER) | payer MEDICARE, MEDICAID ==
[2024-10-04 15:27] LABS: BASOPHILS ABSOLUTE AUTO 0.0 x10-3/uL (0.0-0.3); BASOPHILS PERCENT AUTO 0.2 % (0.3-3.8); EOSINOPHILS ABSOLUTE AUTO 0.1 x10-3/uL (0.0-0.6); EOSINOPHILS PERCENT AUTO 1.2 % (0.1-6.8); LYMPHOCYTES ABSOLUTE AUTO 1.5 x10-3/uL (0.5-4.5); LYMPHOCYTES PERCENT AUTO 24.6 % (15.8-45.3); MEAN PLATELET VOLUME 7.7 fL (6.7-11.0); MONOCYTES ABSOLUTE AUTO 0.6 x10-3/uL (0.0-1.2); MONOCYTES PERCENT AUTO 9.5 % (5.5-15.2); NEUTROPHILS ABSOLUTE AUTO 3.9 x10-3/uL (1.7-6.9); NEUTROPHILS PERCENT AUTO 64.5 % (40.3-71.8); PLATELET COUNT,PLT 250 x10(3)uL (117-477); RED BLOOD CELL COUNT 4.75 x10(6)uL (3.90-5.90); RED CELL DISTRIBUTION WIDTH 13.1 % (12.4-15.0); WHITE BLOOD CELL COUNT,WBC 6.1 x10-3/uL (3.2-10.1)
[2024-10-04] MEDS: Ondansetron 4 MG/2 ML SDV IVPUSH ONE (15:36)
[2024-10-04 15:47] LABS: ETHANOL BLOOD MEDICAL 0.04 % (<0.03)
[2024-10-04 16:16] LABS: LACTIC ACID 1.8 mmol/L (0.4-2.0)
[2024-10-04 16:25] LABS: A/G RATIO 0.8; ALANINE AMINOTRANSFERASE,ALT 26 U/L (12-36); ASPARTATE AMNIOTRANSFERASE,AST 55 IU/L (5-25); BILIRUBIN TOTAL 0.9 mg/dL (0.1-1.3); BLOOD UREA NITROGEN,BUN 22 mg/dL (7-18); CARBON DIOXIDE,CO2 32 mmol/L (21-32); CHLORIDE,CL 95 mmol/L (100-110); CREATINE KINASE,CK 267 IU/L (60-160); EST CRCL DRUG DOSING (CG) 29.17 mL/min; ESTIMATED GFR 35 mL/min (>60); GLUCOSE RANDOM 99 mg/dL (80-116); POTASSIUM,K 5.4 mmol/L (3.5-5.3); PROTEIN TOTAL,TP 7.4 g/dL (6.0-8.0); SODIUM,NA 133 mmol/L (135-145)
[2024-10-04 16:26] LABS: CREATININE 2.0 mg/dL (0.70-1.30)
[2024-10-04 16:44] LABS: GLUCOSE,URINE NORMAL (NORMAL); OCCULT BLOOD,URINE NEGATIVE (NEGATIVE)
[2024-10-04 17:13] LABS: APPEARANCE,URINE CLEAR (CLEAR)
[2024-10-04] MEDS: Ketorolac 15 MG/ML SDV IVPUSH ONE (17:24)
== END 2024-10-04 17:36 | disposition home or self-care (01) ==
LOC: FB.ED 15:06
DX: S40.012A Contusion of left shoulder, initial encounter (principal); E86.0 Dehydration; I10 Essential (primary) hypertension; I48.91 Unspecified atrial fibrillation; E78.00 Pure hypercholesterolemia, unspecified; E11.9 Type 2 diabetes mellitus without complications; F17.210 Nicotine dependence, cigarettes, uncomplicated; M19.90 Unspecified osteoarthritis, unspecified site; Z88.0 Allergy status to penicillin; Z79.82 Long term (current) use of aspirin; Z79.899 Other long term (current) drug therapy; W19.XXXA Unspecified fall, initial encounter; Y93.01 Activity, walking, marching and hiking
CPT/HCPCS: 36415; 70450; 73200-LT; 80053; 80307; 81003; 82550; 83605; 84484; 85025; 86140; 93005; 96361; 96374; 96375; 99285-25; J1885; J2405; J7030